=== PATIENT | female | born 2000 | race African-American/Black ===

== ENCOUNTER 2023-12-06 05:48 | Emergency (ER) | payer OTHER ==
[~2023-12-06] VITALS: Ht 165.1 cm; Wt 80.0 kg
[2023-12-06 06:03] VITALS: BP 124/89; PULSE 77; RESP 19; TEMP 98.4; O2SAT 98
[2023-12-06] MEDS ORDERED: TETRACAINE 0.5% OPHTH DROPS 4ML RIGHTEYE ONE (07:00)
[2023-12-06] MEDS ORDERED: OCUFLX RIGHTEYE (10:38)
== END 2023-12-06 08:06 | disposition left against medical advice (07) ==
LOC: ER 05:48
DX: H57.8A1 Foreign body sensation, right eye (principal)
CPT/HCPCS: 99281

== ENCOUNTER 2023-12-06 08:12 | Emergency (ER) | payer OTHER ==
[~2023-12-06] VITALS: Ht 165.1 cm; Wt 79.4 kg
[2023-12-06 08:34] VITALS: BP 136/97; PULSE 80; RESP 16; TEMP 98; O2SAT 98
[2023-12-06] MEDS: TETRACAINE 0.5% OPHTH DROPS 4ML BOTHEYE ONE (10:00)
[2023-12-06] MEDS: FLUORESCEIN SODIUM 1MG/STRIP RIGHTEYE ONE (10:30)
[2023-12-06] MEDS ORDERED: OCUFLX RIGHTEYE (10:38)
== END 2023-12-06 10:43 | disposition home or self-care (01) ==
LOC: ER 09:00
DX: H57.8A1 Foreign body sensation, right eye (principal)
CPT/HCPCS: 81025; 99283